=== PATIENT | male | born 1985 | race African-American/Black ===

== ENCOUNTER 2017-01-31 10:21 | Emergency (ER) | payer MEDICARE, MEDICAID ==
[~2017-01-31] VITALS: Ht 170.2 cm; Wt 159.0 kg
[2017-01-31 10:31] VITALS: BP 109/85
== END 2017-01-31 16:07 | disposition left against medical advice (07) ==
LOC: ER 13:43
DX: M54.5 Low back pain (principal); Z53.21 Procedure and treatment not carried out due to patient leaving prior to being seen by health care provider

== ENCOUNTER 2018-11-12 16:05 | Inpatient (IN) | payer OTHER, MEDICAID ==
[~2018-11-12] VITALS: Ht 180.3 cm; Wt 158.8 kg
[2018-11-12] MEDS ORDERED: IBUPROFEN 400MG TABLET PO ONE (21:45)
[2018-11-12] MEDS ORDERED: ASPIRIN 81MG TABLET PO ONE (21:45)
[2018-11-12 21:47] LABS: BASOPHILS % 0.7 % (0.0-2.0); EOSINOPHILS % 6.1 % (0.0-5.0); HEMATOCRIT. 44.6 % (42.0-52.0); HEMOGLOBIN. 15.5 g/dL (14.0-18.0); LYMPHOCYTES % 35.1 % (20.0-50.0); MEAN CORPUSCULAR HEMOGLOBIN 31.6 pg (28.0-32.0); MEAN CORPUSCULAR VOLUME 90.7 fL (80.0-94.0); MEAN PLATELET VOLUME 8.9 fl (7.4-10.4); MONOCYTES % 6.9 % (2.0-8.0); NEUTROPHILS % 51.2 % (40.0-76.0); PLATELET 240 x1000/uL (130-400); RED BLOOD CELL COUNT 4.91 mill/uL (4.7-6.1); RED CELL DISTRIBUTION WIDTH 12.6 % (11.6-14.6)
[2018-11-12 21:50] LABS: CHLORIDE 107 mEq/L (98-107)
[2018-11-12 21:52] LABS: PARTIAL THROMBOPLASTIN TIME 28.9 sec (23.4-31.0); PROTHROMBIN TIME 10.2 sec (9.6-11.0)
[2018-11-12] MEDS ORDERED: DIPHENHYDRAMINE 50MG/ML VIAL IV PRN (23:15)
[2018-11-12] MEDS ORDERED: CLONIDINE 0.1MG TABLET PO PRN (23:15)
[2018-11-12] MEDS ORDERED: DEXTROSE 50% WATER 50ML SYRINGE IV PRN (23:15)
[2018-11-12] MEDS ORDERED: MAGNESIUM/ALUMINUM HYDROXIDE/SIMETHICONE 30ML UDC PO PRN (23:15)
[2018-11-12] MEDS ORDERED: IBUPROFEN 800MG TABLET PO PRN (23:15)
[2018-11-12] MEDS ORDERED: GUAIFENESIN 200MG/10ML SUGAR FREE UDC PO PRN (23:15)
[2018-11-12] MEDS ORDERED: ONDANSETRON HCL 4MG/2ML INJ IV PRN (23:15)
[2018-11-12] MEDS ORDERED: ACETAMINOPHEN 325MG TABLET PO PRN (23:15)
[2018-11-13] MEDS ORDERED: POTASSIUM CHLORIDE 20MEQ TABLET SR PO ONE (06:19)
[2018-11-13] MEDS: SODIUM CHLORIDE 0.9% INJ 3ML FLUSH IVF SCH ×2 (06:53→14:47)
[2018-11-13] MEDS ORDERED: INSULIN LISPRO 100 UNITS/ML SUBCUT SCH (08:20)
[2018-11-13] MEDS: BLOOD SUGAR DIAGNOSTIC STRIP TEST SCH ×3 (09:00→17:10)
[2018-11-13 09:30] VITALS: BP 131/91
[2018-11-13] MEDS: METFORMIN HCL 850MG TABLET PO SCH ×2 (11:13→18:12)
[2018-11-13 11:29] VITALS: BP 136/79
[2018-11-13 11:31] VITALS: BP 131/91
[2018-11-13] MEDS ORDERED: ESCI10TA54 MT (11:51)
[2018-11-13] MEDS ORDERED: LISI10TA5 MT (11:51)
[2018-11-13] MEDS ORDERED: METF-414 MT (11:51)
[2018-11-13] MEDS ORDERED: POTASSIUM CHLORIDE 20MEQ TABLET SR PO NR (15:15)
[2018-11-13 16:08] VITALS: BP 123/69
[2018-11-13 19:40] VITALS: BP 135/84
[2018-11-13 20:00] VITALS: BP 141/96
== END 2018-11-13 21:00 | disposition home or self-care (01) | DRG 58 ==
LOC: ER 16:05 → 8WST 21:46 → EDBEDREQ 22:01 → EDBEDREQTM 22:01 → ENRESERV 11-13 07:31
PROVIDERS: ADMIT Internal Medicine; ATTEND Internal Medicine
DX: R20.2 Paresthesia of skin (principal); E66.01 Morbid (severe) obesity due to excess calories; E11.9 Type 2 diabetes mellitus without complications; E78.00 Pure hypercholesterolemia, unspecified; E87.6 Hypokalemia; I10 Essential (primary) hypertension; F32.9 Major depressive disorder, single episode, unspecified; Z83.3 Family history of diabetes mellitus; Z68.42 Body mass index [BMI] 45.0-49.9, adult
CPT/HCPCS: 36415; 71045; 80051; 80061; 82962; 83036; 83735; 83880; 84484; 93005; 99285